=== PATIENT | male | born 1935 | race Caucasian/White ===

== ENCOUNTER 2024-04-25 21:52 | Emergency (ER) | payer MEDICARE, BC ==
[~2024-04-25] VITALS: Ht 170.2 cm; Wt 81.8 kg
[2024-04-25 21:59] VITALS: TEMP 98.2
[2024-04-25] MEDS ORDERED: ELIQUIS 2.5 PO (22:18)
[2024-04-25] MEDS ORDERED: MAGNESIUM200 MG PO (22:19)
[2024-04-25] MEDS ORDERED: TOPROL XL 25MG25 MG PO (22:31)
[2024-04-25] MEDS ORDERED: UROXATRAL10 M1 PO (22:31)
[2024-04-25] MEDS ORDERED: LASIX 20MG TABL20 MG PO (22:32)
[2024-04-25] MEDS ORDERED: LIPITOR 10MG10 MG PO (22:33)
[2024-04-25] MEDS ORDERED: VITAMINC1000TA PO (22:33)
[2024-04-25] MEDS ORDERED: KLOR-CON SPRIN10 MEQ PO (22:34)
[2024-04-25] MEDS ORDERED: MELATONIN5 M1 PO (22:34)
[2024-04-25 23:14] LABS: BASO # 0.1 K/mm3 (0.0-0.2); BASO % 0.9 % (0.0-2.0); EOS # 0.2 K/mm3 (0.0-0.7); EOS % 2.8 % (0.0-4.0); GRAN # 4.8 K/mm3 (1.4-6.5); GRAN % 64.7 % (42.2-75.2); HEMATOCRIT 39.9 % (42.0-52.0); LYMPH # 1.5 K/mm3 (1.2-3.4); LYMPH % 19.9 % (20.0-51.0); MEAN CELL VOLUME 92 fl (80.0-100.0); MEAN CORPUSCULAR HEMOGLOBIN 30 pg (27-31); MEAN CORPUSCULAR HGB CONC 33 g/dl (33.0-37.0); MEAN PLATELET VOLUME 10.2 fl (7.4-10.4); MONO # 0.9 K/mm3 (0.1-0.6); MONO % 11.4 % (1.7-9.3); PLATELET COUNT 170 K/mm3 (130-400); RED BLOOD COUNT 4.34 M/mm3 (4.20-5.60); REDCELL DISTRIBUTION WIDTH-CV 14.2 % (11.5-14.5)
[2024-04-25 23:21] LABS: INR 1.4 (0.8-3.0); PROTHROMBIN TIME 15.4 SECONDS (9.7-12.8)
[2024-04-25 23:23] LABS: PARTIAL THROMBOPLASTIN TIME 42.2 SECONDS (26.0-37.0)
[2024-04-25 23:37] LABS: ALANINE AMINOTRANSFERASE 20 U/L (0-55); ALBUMIN 3.8 g/dL (3.4-4.8); ALKALINE PHOSPHATASE 110 U/L (40-150); ANION GAP 9 mmol/L (7-16); AST,SGOT 27 U/L (5-34); BILIRUBIN,TOTAL 1.1 mg/dL (0.2-1.2); BLOOD UREA NITROGEN 22 mg/dL (8-26); CALCIUM 9.5 mg/dL (8.4-10.2); CHLORIDE 107 mEq/L (98-107); GLUCOSE 110 mg/dL (70-99); POTASSIUM 4.1 mEq/L (3.5-4.5); SODIUM 140 mEq/L (136-145); TOTAL PROTEIN 6.6 g/dl (6.2-8.1)
[2024-04-25 23:55] LABS: TROPONIN-I < 0.010 ng/mL (0.00-0.033)
[2024-04-26 00:51] LABS: PH 5.5 (5.0-8.5); URINE APPEARANCE CLEAR (CLEAR/HAZY); URINE BLOOD NEGATIVE (NEGATIVE); URINE COLOR YELLOW (YELLOW); URINE GLUCOSE NEGATIVE (NEGATIVE); URINE KETONE NEGATIVE (NEGATIVE); URINE NITRATE NEGATIVE (NEGATIVE); URINE PROTEIN(semi-quant) NEGATIVE (NEGATIVE); URINE UROBILINOGEN 0.2 E.U/dL (0.2-1.0)
[2024-04-26 00:59] LABS: COLLECTION METHOD CLEAN CATCH
[2024-04-26] MEDS ORDERED: Iohexol 350 - 100 ML VIAL IV ONE (02:57)
[2024-04-26] MEDS ORDERED: NS 50 ML IV SCH (02:57)
[2024-04-26 04:47] VITALS: BP 166/83; PULSE 96
== END 2024-04-26 04:45 | disposition home or self-care (01) ==
LOC: COL.ER 21:52
PROVIDERS: Emergency Medicine
DX: I71.40 Abdominal aortic aneurysm, without rupture, unspecified (principal); G93.9 Disorder of brain, unspecified; K80.20 Calculus of gallbladder without cholecystitis without obstruction; I73.9 Peripheral vascular disease, unspecified; I10 Essential (primary) hypertension; K83.8 Other specified diseases of biliary tract; N28.0 Ischemia and infarction of kidney; I48.91 Unspecified atrial fibrillation; Z79.01 Long term (current) use of anticoagulants; Z87.891 Personal history of nicotine dependence
CPT/HCPCS: Q9967

== ENCOUNTER → 2024-05-09 | Outpatient (CLI) | payer MEDICARE, BC ==
[~2024-05-09] MED LIST: ELIQUIS 2.5 PO; KLOR-CON SPRIN10 MEQ PO; LASIX 20MG TABL20 MG PO; LIPITOR 10MG10 MG PO; MAGNESIUM200 MG PO; MELATONIN5 M1 PO; TOPROL XL 25MG25 MG PO; UROXATRAL10 M1 PO; VITAMINC1000TA PO
== END ==
LOC: COL.VAS 11:52
DX: I63.9 Cerebral infarction, unspecified (principal); I34.0 Nonrheumatic mitral (valve) insufficiency